=== PATIENT | male | born 1945 | race Two or more races ===

== ENCOUNTER 2022-06-15 17:33 | Inpatient (IN) | payer OTHER ==
[2022-06-15] MEDS ORDERED: PIPERACILLIN/TAZOB 3.375 GM 3.375 GM/50 ML BAG IVPB ONE ×2 (19:27→20:16)
[2022-06-15] MEDS ORDERED: VANCOMYCIN 1 GM/200 ML PREMIX BAG (RESTRICTED TO ID ONLY) IVPB ONE (19:27)
[2022-06-15] MEDS ORDERED: VANCOMYCIN/WATER FOR INJ (PEG) 1,000 MG/200 ML BAG IVPB ONE (20:16)
[2022-06-15 21:27] LABS: BASO % 0.7 % (0-2.0); EOS % 2.7 % (0-4.5); HEMATOCRIT 38.3 % (35.4-49); HEMOGLOBIN 12.9 GM/dL (11.7-16.9); LYMPH % 33.6 % (8-40); MCH 32.2 pg (25.7-33.7); MCHC 33.8 g/dl (32.0-35.9); MEAN CELL VOLUME 95.3 fl (80-96); MEAN PLT VOLUME 6.9 fl (7.5-11.1); MONO % 6.9 % (3.8-10.2); NEUT % 56.1 % (42.8-82.8); PLATELET COUNT 294 10^3/uL (134-434); RBC 4.02 M/mm3 (4.00-5.60); RDW 14.1 % (11.9-15.9); WHITE BLOOD COUNT 5.9 K/mm3 (4.0-10.0)
[2022-06-15 21:31] LABS: INR 1.19 (0.83-1.09); PROTHROMBIN TIME (PATIENT) 13.7 SEC (9.7-13.0)
[2022-06-15 21:34] LABS: ACTIVATED PTT 27.8 SECONDS (25.2-36.5)
[2022-06-15 21:45] LABS: CALCIUM 9.1 mg/dL (8.5-10.1)
[2022-06-15 21:46] LABS: ALBUMIN 3.3 g/dl (3.4-5.0); BLOOD UREA NITROGEN 13.3 mg/dL (7-18)
[2022-06-15 21:49] LABS: CREATININE 0.5 mg/dL (0.55-1.3)
[2022-06-15 21:51] LABS: BILIRUBIN,TOTAL 0.6 mg/dL (0.2-1); TOT PROT 7.4 g/dl (6.4-8.2)
[2022-06-16] MEDS ORDERED: METOPROLOL TARTRATE 25 MG TABLET (FP) ONE (08:29)
[2022-06-16] MEDS ORDERED: levETIRAcetam 500 MG TABLET (FP) PO ONE (08:29)
[2022-06-16] MEDS ORDERED: ENOXAPARIN NA (PORCINE) 40 MG/0.4 ML DISP.SYRIN SQ ONE (08:30)
[2022-06-16 09:38] LABS: HEMATOCRIT 36.8 % (35.4-49); HEMOGLOBIN 12.4 GM/dL (11.7-16.9); MCH 32.3 pg (25.7-33.7); MCHC 33.7 g/dl (32.0-35.9); MEAN CELL VOLUME 95.7 fl (80-96); MEAN PLT VOLUME 6.9 fl (7.5-11.1); PLATELET COUNT 298 10^3/uL (134-434); RBC 3.84 M/mm3 (4.00-5.60); RDW 14.4 % (11.9-15.9); WHITE BLOOD COUNT 4.8 K/mm3 (4.0-10.0)
[2022-06-16] MEDS ORDERED: ENOXAPARIN NA (PORCINE) 40 MG/0.4 ML DISP.SYRIN SQ SCH (10:00)
[2022-06-16] MEDS: levETIRAcetam 500 MG TABLET (FP) PO SCH ×2 (10:03→21:42)
[2022-06-16] MEDS: METOPROLOL TARTRATE 25 MG TABLET (FP) PO SCH ×2 (10:03→21:42)
[2022-06-16 10:37] LABS: CALCIUM 8.8 mg/dL (8.5-10.1)
[2022-06-16 10:38] LABS: ALBUMIN 3.2 g/dl (3.4-5.0)
[2022-06-16 10:41] LABS: CREATININE 0.4 mg/dL (0.55-1.3); PHOSPHOROUS 3.6 mg/dL (2.5-4.9)
[2022-06-16 10:42] LABS: BILIRUBIN,TOTAL 0.8 mg/dL (0.2-1); TOT PROT 7.2 g/dl (6.4-8.2)
[2022-06-16 21:42] VITALS: BP 123/68; PULSE 74; RESP 16; TEMP 97.5
[2022-06-16] MEDS ORDERED: ATORVASTATIN CA 10 MG TABLET (FP) PO SCH (22:00)
== END 2022-06-16 22:00 | DRG 380 ==
LOC: JER 17:33 → JERBED 06-16 01:07 → J5S 06-16 15:59
PROVIDERS: ADMIT Internal Medicine; ATTEND Internal Medicine
DX: L97.516 Non-pressure chronic ulcer of other part of right foot with bone involvement without evidence of necrosis (principal); F03.90 Unspecified dementia, unspecified severity, without behavioral disturbance, psychotic disturbance, mood disturbance, and anxiety; E78.5 Hyperlipidemia, unspecified; I10 Essential (primary) hypertension
CPT/HCPCS: 0241U-QW; 36415; 80053; 83735; 84100; 85025; 85027; 85610; 85651; 85730; 86140; 87040; 93005; 93010; 99285-25